=== PATIENT | female | born 1950 | race Two or more races ===

== ENCOUNTER 2023-05-24 13:02 | Emergency (ER) | payer OTHER ==
[~2023-05-24] VITALS: Ht 162.6 cm; Wt 95.3 kg
[2023-05-24] MEDS ORDERED: ZYLOPRIM100 M1 PO (13:48)
[2023-05-24] MEDS ORDERED: TORSEMIDE10 MG (13:49)
[2023-05-24] MEDS ORDERED: ALDACTONE25 MG PO (13:49)
[2023-05-24] MEDS ORDERED: PNEU16DI2 (13:49)
[2023-05-24] MEDS ORDERED: TOPROL XL100 M1 PO (13:49)
[2023-05-24] MEDS ORDERED: GLUMETZA1000 MG PO (13:50)
[2023-05-24] MEDS ORDERED: TOPIRAMATE ER50 M1 PO (13:50)
[2023-05-24] MEDS ORDERED: DONEPEZIL HCL O10 MG PO (13:51)
[2023-05-24] MEDS ORDERED: ESOMEPRAZOLE MA20 MG PO (13:51)
== END 2023-05-24 16:41 | disposition home or self-care (01) ==
LOC: ER 13:03
DX: R53.81 Other malaise (principal); Z87.09 Personal history of other diseases of the respiratory system; Z88.0 Allergy status to penicillin; Z88.8 Allergy status to other drugs, medicaments and biological substances; E11.9 Type 2 diabetes mellitus without complications; Z79.84 Long term (current) use of oral hypoglycemic drugs